=== PATIENT | female | born 2000 | race Two or more races ===

== ENCOUNTER 2019-09-01 00:26 | Emergency (ER) | payer SELFPAY ==
[2019-09-01 01:06] VITALS: BP 109/71; PULSE 66; TEMP 98.3; BMI 27.8
[2019-09-01] MEDS ORDERED: ACETAMINOPHEN WITH CODEINE 300MG/30MG TABLET PO ONE (01:47)
[2019-09-01] MEDS ORDERED: ACETAMINOPHEN WITH CODEINE 300MG/30MG TABLET ONE (02:01)
--- NOTE | 2019-09-01 02:17 | PDOC ---
History of Present Illness - General Chief Complaint: Back Pain Stated Complaint: PAIN/BACK Time Seen by Provider: 09/01/19 01:15 History Source: Patient Exam Limitations: No Limitations - History of Present Illness Initial Comments: 09/01/19 02:14 HISTORY OF PRESENT ILLNESS: 18-year-old otherwise healthy woman denies OCP usage presents emergency department for evaluation of dry nonproductive cough for the past 2 days. She denies fevers chills but reports increased pleuritic pain worsens with coughing. Additionally patient has a bitemporal headache which worsens with cough. Patient does not have coughing fits the headache resolves completely. Patient reports intermittently shortness of breath but denies at present. No recent travel or sick contacts. PAST MEDICAL HISTORY: Denies past medical history SURGICAL HISTORY: Denies ALLERGIES: No known drug allergies REVIEW OF SYSTEMS General/Constitutional: Denies fever or chills. Denies weakness, weight change. HEENT: Denies change in vision. Denies ear pain or discharge. Denies sore throat. Cardiovascular: Denies chest pain or shortness of breath. Respiratory: See HPI Gastrointestinal: Denies nausea, vomiting, diarrhea or constipation. Denies rectal bleeding. Genitourinary: Denies dysuria, frequency, or change in urination. Musculoskeletal: Denies joint or muscle swelling or pain. Denies neck or back pain. Skin and breasts: Denies rash or easy bruising. Neurologic: See HPI Psychiatric: Denies depression or anxiety. Endocrine: Denies increased thirst. Denies abnormal weight change. Hematologic/Lymphatic: Denies anemia, easy bleeding, or history of blood clots. Allergic/Immunologic: Denies hives or skin allergy. Denies latex allergy. PHYSICAL EXAM General Appearance: Well-appearing, appropriately dressed. No apparent distress , no intoxication. HEENT: EOMI, PERRLA, normal ENT inspection, normal voice, TMs normal, pharynx normal. No conjunctival pallor. No photophobia, scleral icterus. Cobblestoning present the posterior aspect of the oropharynx. Neck: Supple. Trachea midline. No tenderness, rigidity, carotid bruit, stridor , lymphadenopathy, or thyromegaly. Respiratory/Chest: Lungs CTAB. No shortness of breath, chest tenderness, respiratory distress, accessory muscle use. No crackles, rales, rhonchi, stridor , wheezing, dullness Cardiovascular: RRR. S1, S2. No JVD, murmur, bradycardia, tachycardia. Lymphatic: No adenopathy, tenderness. Integumentary: Appropriate color, dry, warm. 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 Fully oriented, alert. Appropriate mood/affect. Motor strength 5/5. No appreciable EOM palsy, facial droop or sensory deficit. 09/01/19 02:24 Past History - Past Medical History Allergies/Adverse Reactions: Allergies Allergy/AdvReac Type Severity Reaction Status Date / Time No Known Allergies Allergy Verified 09/01/19 00:54 Home Medications: Ambulatory Orders Benzonatate [Tessalon Pearls -] 200 mg PO TID PRN #42 cap 09/01/19 COPD: No - Surgical History Appendectomy: Yes - Psycho Social/Smoking Cessation Hx Smoking History: Current some day smoker Information on smoking cessation initiated: No Hx Alcohol Use: No Drug/Substance Use Hx: No *Physical Exam - Vital Signs Last Vital Signs Temp Pulse Resp BP Pulse Ox 98.3 F 66 16 109/71 100 09/01/19 00:55 09/01/19 00:55 09/01/19 00:55 09/01/19 00:55 09/01/19 00:55 ED Treatment Course - RADIOLOGY Radiology Studies Ordered: Category Date Time Status CHEST PA & LAT [RAD] Stat Radiology 09/01/19 01:46 Taken - Medications Given in the ED: ED Medications Discontinued Medications Generic Name Dose Route Start Last Admin Trade Name Freq PRN Reason Stop Dose Admin Acetaminophen/Codeine Phosphate 1 tab 09/01/19 01:47 09/01/19 02:05 Tylenol # 3 - PO 09/01/19 01:48 1 tab ONCE ONE Administration Medical Decision Making - Medical Decision Making 09/01/19 02:16 A/P: 18-year-old woman with cough for 2 days Patient most likely with an upper respiratory infection given postnasal drip and coughing. Patient is requesting chest x-ray to rule out pneumonia. Chest x-ray Tylenol 3 1 tablet orally now Reassess Discharge - Discharge Information Problems reviewed: Yes Clinical Impression/Diagnosis: Cough headache, URI, acute Condition: Stable Disposition: HOME - Admission No - Additional Discharge Information Prescriptions: Benzonatate [Tessalon Pearls -] 200 mg PO TID PRN #42 cap PRN Reason: Cough - Follow up/Referral Referrals: [facility] [place] [facility] [place] [Provider Group] - Patient Discharge Instructions Additional Instructions: Rest, drink lots of fluids: Teas, water, soups, Pedialyte Saltwater gargles Steamy showers/seem to face break up mucus Avoid contact with others until fevers and cough resolved Lots of handwashing and good hygiene Continue gvov-xna-yphynwd medications for symptomatic relief Tylenol or Motrin for fever and pain Followup with private physician in one to 2 days as needed Return to emergency department for worsened symptoms, fevers, dehydration El descsurinderorikki muchos lquidos: ts, agua, sopas, Pedialyte grgaras de agua salada Duchas Steamy / parecen enfrentar aflojar la mucosidad Evite el contacto con otras personas hasta que la fiebre y la tos resueltos Un montn de lavado de isis y la higiene Continuar kvva-cen-ylkoemr medicamentos para el alivio sintomtico Tylenol o Motrin para la fiebre y el dolor Followup con el mdico privado en [place] o 2 josue segn sea necesario Regresar a urgencias por sntomas empeoraron, fiebres, deshidratacin - Post Discharge Activity
== END 2019-09-01 03:25 | disposition home or self-care (01) ==
LOC: JER 00:26
DX: J06.9 Acute upper respiratory infection, unspecified (principal); Z72.0 Tobacco use
CPT/HCPCS: 71046-TC-FY; 99283-25

== ENCOUNTER 2020-02-17 20:33 | Emergency (ER) | payer OTHER ==
[2020-02-17 20:52] VITALS: BMI 28.3
[2020-02-17] MEDS ORDERED: PANTOPRAZOLE SODIUM 40 MG VIAL IVPUSH ONE (22:07)
[2020-02-17] MEDS ORDERED: MAG HYDROX/AL HYDROX/SIMETH 30 ML UNIT-DOSE CUP PO ONE (22:07)
[2020-02-17] MEDS ORDERED: PANTOPRAZOLE SODIUM 40 MG VIAL ONE (22:30)
[2020-02-17] MEDS ORDERED: MAG HYDROX/AL HYDROX/SIMETH 30 ML UNIT-DOSE CUP ONE (22:30)
[2020-02-17 22:34] LABS: BASO % 0.9 % (0-2.0); EOS % 0.8 % (0-4.5); HEMATOCRIT 39.8 % (32.4-45.2); HEMOGLOBIN 13.2 GM/dL (10.7-15.3); LYMPH % 28.9 % (8-40); MCH 30.2 pg (25.7-33.7); MCHC 33.1 g/dl (32.0-36.0); MEAN CELL VOLUME 91.2 fl (80-96); MEAN PLT VOLUME 8.8 fl (7.5-11.1); NEUT % 63.4 % (42.8-82.8); PLATELET COUNT 270 K/MM3 (134-434); RBC 4.36 M/mm3 (3.60-5.2); RDW 13.4 % (11.6-15.6); WHITE BLOOD COUNT 9.7 K/mm3 (4.0-10.0)
--- NOTE | 2020-02-17 22:36 | PDOC ---
History of Present Illness - General Chief Complaint: Pain, Acute Stated Complaint: ABD PAIN Time Seen by Provider: 02/17/20 21:23 History Source: Patient Exam Limitations: Language Barrier - History of Present Illness Initial Comments: 02/17/20 22:34 19-year-old female no significant past medical history complaining of 3 days of abdominal pain described as diffuse crampy. Patient states that she finished her menstrual period 3 days ago and has been the pain began. Patient states she had a similar event 1 month ago where after her period she had diffuse abdominal pain but resolved on its own. Patient did not take any medicine at this time patient has not had any episodes of nausea vomiting diarrhea. Pt otherwise denies: fevers, chills, syncope, lightheadedness, dizziness, headaches, neck pain, chest pain, shortness of breath, palpitations, back pain nausea, vomiting, diarrhea, constipation, melena, hematochezia, dysuria, hematuria, increased urinary frequency/urgency, vaginal bleeding, vaginal discharge. Past History - Medical History Allergies/Adverse Reactions: Allergies Allergy/AdvReac Type Severity Reaction Status Date / Time No Known Allergies Allergy Verified 09/01/19 00:54 Home Medications: Ambulatory Orders Benzonatate [Tessalon Pearls -] 200 mg PO TID PRN #42 cap 09/01/19 COPD: No - Surgical History Appendectomy: Yes - Reproductive History Is Patient Now?: No - Psycho-Social/Smoking History Smoking History: Never smoked - Substance Abuse Hx (Audit-C & DAST Scrn) How often the patient has a drink containing alcohol: Never Score: In Men: 4 or > Positive; In Women: 3 or > Positive: 0 Screen Result (Pos requires Nsg. Audit-10AR): Negative In the last yr the pt used illegal drug/Rx for NonMed reason: No Score: Yes response is considered Positive: 0 Screen Result (Positive result requires Nsg. DAST-10): Negative *Physical Exam - Vital Signs Last Vital Signs Temp Pulse Resp BP Pulse Ox 97.6 F 72 19 110/60 98 02/17/20 20:45 02/17/20 20:45 02/17/20 20:45 02/17/20 20:45 02/17/20 20:45 - Physical Exam 02/17/20 22:35 Gen: AAOx 3, no acute distress, comfortable, no signs of respiratory distress HENT: atraumatic, normocephalic with no laceration or contusion. Nasal mucosa without erythema. Oropharynx without erythema or exudates. Mucous membranes moist. EYES: PERRL, EOM intact, conjunctiva pink NECK: supple; trachea midline; no JVD, no lymphadenopathy, or thyromegaly CV: RRR no murmurs, gallops, or rubs. CHEST: CTA b/l no wheezing, rales or rhonchi ABD: +BS/ND. TTP thoutghout abdomen; soft, no rebound, no guarding EXTREMITY: no cyanosis or erythema. 2+ dorsalis pedis, posterior tibial, and radial pulse. No pedal edema; no calf swelling or tenderness SKIN: no rash, warm and dry, no diaphoresis HEME: no purpura or ecchymosis NEURO: normal speech, CN II-XII intact, sensation intact, normal gait, no cerebellar deficits MS: 5/5 strength in all extremities, FROM intact in all extremities. ED Treatment Course - LABORATORY CBC & Chemistry Diagram: 02/17/20 21:50 02/17/20 21:50 Medical Decision Making - Medical Decision Making 02/17/20 22:35 19-year-old female diffuse abdominal pain Vital signs stable Will obtain labs give Protonix Maalox Will reassess based on results and need for imaging Pt reports minimal improvement with GI meds Labs grossly WNL Beta hydroxybuterate order in error HCG Negative UA shows UTI will treat pt Pending CT abdomen and pelvis Due to shift change patient signed out to the resident pending CAT scan results Discharge - Discharge Information Problems reviewed: Yes Clinical Impression/Diagnosis: Abdominal pain Qualifiers: Abdominal location: generalized Qualified Code(s): R10.84 - Generalized abdominal pain - Follow up/Referral - Patient Discharge Instructions - Post Discharge Activity
[2020-02-17 22:57] LABS: ALBUMIN 4.1 g/dl (3.4-5.0); ALK PHOS 75 U/L (45-117); ANION GAP 7 MMOL/L (8-16); BLOOD UREA NITROGEN 12.5 mg/dL (7-18); CALCIUM 9.8 mg/dL (8.5-10.1); CHLORIDE 101 mmol/L (98-107); CO2 27 mmol/L (21-32); CREATININE 0.7 mg/dL (0.55-1.3); GLUCOSE,RANDOM 73 mg/dL (74-106); LIPASE 118 U/L (73-393); POTASSIUM 4.4 mmol/L (3.5-5.1); SGOT/AST 28 U/L (15-37); SGPT/ALT 29 U/L (13-61); SODIUM 136 mmol/L (136-145); TOT PROT 8.2 g/dl (6.4-8.2)
[2020-02-17 23:01] LABS: BILIRUBIN,TOTAL 0.4 mg/dL (0.2-1)
[2020-02-17 23:08] LABS: EPI CELLS 23 /uL (0-25.1); HYALINE CASTS 4 /uL (0-3.1); URINE APPEARANCE CLEAR; URINE BACTERIA 1269 /uL (0-1359); URINE BILIRUBIN NEGATIVE (NEGATIVE); URINE COLOR YELLOW; URINE GLUCOSE (UA) NEGATIVE (NEGATIVE); URINE KETONE 1+ (NEGATIVE); URINE LEUK ESTERASE 2+ (NEGATIVE); URINE NITRITE NEGATIVE (NEGATIVE); URINE PROTEIN NEGATIVE (NEGATIVE); URINE RBC 16 /uL (0-23.9); URINE UROBILINOGEN 0.2 mg/dL (0.2-1.0); URINE WBC 319 /uL (0-25.8)
[2020-02-18] MEDS ORDERED: KETOROLAC TROMETHAMINE 30 MG/1 ML VIAL IVPUSH ONE (01:40)
--- NOTE | 2020-02-18 01:49 | PDOC ---
*Physical Exam - Vital Signs Last Vital Signs Temp Pulse Resp BP Pulse Ox 97.6 F 72 19 110/60 98 02/17/20 20:45 02/17/20 20:45 02/17/20 20:45 02/17/20 20:45 02/17/20 20:45 ED Treatment Course - LABORATORY CBC & Chemistry Diagram: 02/17/20 21:50 02/17/20 21:50 - ADDITIONAL ORDERS Additional order review: Laboratory Results 02/17/20 02/17/20 02/17/20 23:00 21:50 21:50 PTT (Actin FS) 37.3 H Sodium 136 Potassium 4.4 Chloride 101 Carbon Dioxide 27 Anion Gap 7 L BUN 12.5 Creatinine 0.7 Est GFR (CKD-EPI)AfAm 143.54 Est GFR (CKD-EPI)NonAf 123.85 Random Glucose 73 L Calcium 9.8 Total Bilirubin 0.4 AST 28 ALT 29 Alkaline Phosphatase 75 Total Protein 8.2 Albumin 4.1 Lipase 118 Beta-Hydroxybutyrate 3.9 H Beta HCG, Quant < 1.0 Urine Color Yellow Urine Appearance Clear Urine pH 6.0 Ur Specific [place] 1.024 Urine Protein Negative Urine Glucose (UA) Negative Urine Ketones 1+ H Urine Blood Trace Urine Nitrite Negative Urine Bilirubin Negative Urine Urobilinogen 0.2 Ur Leukocyte Esterase 2+ H Urine WBC (Auto) 319 Urine RBC (Auto) 16 Urine Casts (Auto) 4 U Epithel Cells (Auto) 23 Urine Bacteria (Auto) 1269 02/17/20 21:50 RBC 4.36 MCV 91.2 MCHC 33.1 RDW 13.4 MPV 8.8 Neutrophils % 63.4 Lymphocytes % 28.9 Monocytes % 6.0 Eosinophils % 0.8 Basophils % 0.9 - Medications Given in the ED: ED Medications Discontinued Medications Generic Name Dose Route Start Last Admin Trade Name Freq PRN Reason Stop Dose Admin Al Hydroxide/Mg Hydroxide 30 ml 02/17/20 22:07 02/17/20 22:15 Mylanta Oral Suspension - PO 02/17/20 22:08 30 ml ONCE ONE Administration Pantoprazole Sodium 40 mg 02/17/20 22:07 02/17/20 22:15 Protonix Iv IVPUSH 02/17/20 22:08 40 mg ONCE ONE Administration Medical Decision Making - Medical Decision Making 02/18/20 01:47 Pt received on s/o from [facility]ARRE[facility]. 19F with no reported PMH presenting today with diffuse abdominal pain that has been worsening. LNMP 3 days ago. No vaginal bleeding/discharge. ED course: pt received protonix maalox, toradol with minimal improvement. CT abd/pelv with IV contrast ordered. UA shows signs of UTI. 02/18/20 04:45 CT abd/pelv shows mild central canal narrowing at L4-5 due to a disc herniation. No other evidence of acute pathology. 02/18/20 05:13 Pelvic exam shows normal external exam with no active bleeding or obvious lesions. White, physiologic discharge in the vaginal vault. Os closed. Mild suprapubic tenderness but no cervical motion tenderness and no adnexal tenderness bilaterally. GC swab sent. Pt reassessed. Plan to d/c home with keflex for UTI and PCP f/u. All questions answered. Return precautions given. Pt verbalized understanding and agreement with plan. Discharge - Discharge Information Problems reviewed: Yes Clinical Impression/Diagnosis: Abdominal pain Qualifiers: Abdominal location: generalized Qualified Code(s): R10.84 - Generalized abdom inal pain Condition: Stable Disposition: HOME - Admission No - Additional Discharge Information Prescriptions: Cephalexin [Keflex] 500 mg PO BID 5 Days #10 capsule - Follow up/Referral Referrals: [facility] [place] [facility] [place] [Provider Group] - Patient Discharge Instructions Patient Printed Discharge Instructions: DI for Abdominal Pain-Adult, DI for Dysuria -- Adult Additional Instructions: Please take Keflex 500 mg twice a day for 5 days. Please make a follow up appointment with your primary care doctor within the next week. If you experience any new, worsening, or concerning symptoms, including worsening abdominal pain, blood in the vomit or stool, fever, chills, back pain, or any other concerns, please return to the emergency department. Babbie Keflex 500 mg dos veces al da jackie 5 josue. Jordyn damian ash de seguimiento con mo mdico de atencin primaria dentro de la prxima semana. Si experimenta algn sntoma nuevo, que empeora o preocupa, que incluye empe oramiento del dolor abdominal, flako en el vmito o las heces, fiebre, escalofros, dolor de espalda o cualquier otra inquietud, regrese al departamento de emergencias. - Post Discharge Activity
[2020-02-18] MEDS ORDERED: KETOROLAC TROMETHAMINE 30 MG/1 ML VIAL ONE (02:17)
--- NOTE | 2020-02-18 04:16 | PDOC ---
*Physical Exam - Vital Signs Last Vital Signs Temp Pulse Resp BP Pulse Ox 97.6 F 72 19 110/60 98 02/17/20 20:45 02/17/20 20:45 02/17/20 20:45 02/17/20 20:45 02/17/20 20:45 ED Treatment Course - LABORATORY CBC & Chemistry Diagram: 02/17/20 21:50 02/17/20 21:50 - ADDITIONAL ORDERS Additional order review: Laboratory Results 02/17/20 02/17/20 02/17/20 23:00 22:06 21:50 PTT (Actin FS) 37.3 H Sodium 136 Potassium 4.4 Chloride 101 Carbon Dioxide 27 Anion Gap 7 L BUN 12.5 Creatinine 0.7 Est GFR (CKD-EPI)AfAm 143.54 Est GFR (CKD-EPI)NonAf 123.85 Random Glucose 73 L Calcium 9.8 Total Bilirubin 0.4 AST 28 ALT 29 Alkaline Phosphatase 75 Total Protein 8.2 Albumin 4.1 Lipase 118 Beta-Hydroxybutyrate 3.9 H Beta HCG, Quant < 1.0 Urine Color Urine Appearance Urine pH Ur Specific [place] Urine Protein Urine Glucose (UA) Urine Ketones Urine Blood Urine Nitrite Urine Bilirubin Urine Urobilinogen Ur Leukocyte Esterase Urine WBC (Auto) Urine RBC (Auto) Urine Casts (Auto) U Epithel Cells (Auto) Urine Bacteria (Auto) Blood Type O POSITIVE Antibody Screen Negative 02/17/20 21:50 PTT (Actin FS) Sodium Potassium Chloride Carbon Dioxide Anion Gap BUN Creatinine Est GFR (CKD-EPI)AfAm Est GFR (CKD-EPI)NonAf Random Glucose Calcium Total Bilirubin AST ALT Alkaline Phosphatase Total Protein Albumin Lipase Beta-Hydroxybutyrate Beta HCG, Quant Urine Color Yellow Urine Appearance Clear Urine pH 6.0 Ur Specific [place] 1.024 Urine Protein Negative Urine Glucose (UA) Negative Urine Ketones 1+ H Urine Blood Trace Urine Nitrite Negative Urine Bilirubin Negative Urine Urobilinogen 0.2 Ur Leukocyte Esterase 2+ H Urine WBC (Auto) 319 Urine RBC (Auto) 16 Urine Casts (Auto) 4 U Epithel Cells (Auto) 23 Urine Bacteria (Auto) 1269 Blood Type Antibody Screen 02/17/20 21:50 RBC 4.36 MCV 91.2 MCHC 33.1 RDW 13.4 MPV 8.8 Neutrophils % 63.4 Lymphocytes % 28.9 Monocytes % 6.0 Eosinophils % 0.8 Basophils % 0.9 - Medications Given in the ED: ED Medications Discontinued Medications Generic Name Dose Route Start Last Admin Trade Name Sharon PRN Reason Stop Dose Admin Al Hydroxide/Mg Hydroxide 30 ml 02/17/20 22:07 02/17/20 22:15 Mylanta Oral Suspension - PO 02/17/20 22:08 30 ml ONCE ONE Administration Ketorolac Tromethamine 30 mg 02/18/20 01:40 02/18/20 02:26 Toradol Injection - IVPUSH 02/18/20 01:41 30 mg ONCE ONE Administration Pantoprazole Sodium 40 mg 02/17/20 22:07 02/17/20 22:15 Protonix Iv IVPUSH 02/17/20 22:08 40 mg ONCE ONE Administration Medical Decision Making - Medical Decision Making 02/18/20 04:16 Patient seen by the advanced practice provider under my supervision. Ancillary testing reviewed as necessary. I agree with plan as outlined by the advanced practice provider. Case signed out to ED resident pending CT scan results which shows no significant acute abnormality Will DC on antibiotics for urinary tract infection with outpatient follow-up Discharge - Discharge Information Problems reviewed: Yes Clinical Impression/Diagnosis: Abdominal pain Qualifiers: Abdominal location: generalized Qualified Code(s): R10.84 - Generalized abdominal pain - Follow up/Referral - Patient Discharge Instructions - Post Discharge Activity
[2020-02-18 06:37] VITALS: BP 108/69; PULSE 55; TEMP 98
== END 2020-02-18 06:00 | disposition home or self-care (01) ==
LOC: JER 20:33
PROC: 3E033GC Introduction of Other Therapeutic Substance into Peripheral Vein, Percutaneous Approach (ICD-10-PCS; principal; 2020-02-17)
DX: R10.84 Generalized abdominal pain (principal)
CPT/HCPCS: 36415; 74177-TC; 80053; 81003; 82010; 83690; 84702; 85025; 85730; 86850; 86900; 86901; 87491; 87591; 99285-25; Q9967

== ENCOUNTER 2020-03-01 14:23 | Emergency (ER) | payer OTHER ==
[2020-03-01] MEDS ORDERED: AZITHROMYCIN 250 MG TABLET PO ONE (14:35)
--- NOTE | 2020-03-01 14:35 | PDOC ---
Rapid Medical Evaluation Time Seen by Provider: 03/01/20 14:33 Medical Evaluation: Allergies Allergy/AdvReac Type Severity Reaction Status Date / Time No Known Allergies Allergy Verified 03/01/20 14:25 03/01/20 14:33 I have performed a brief in-person evaluation of this patient. CC: returned to ER for treatment of GC PE: deferred Orders: ceftriaxone and azithromycin Patient to proceed to ED for further evaluation. Discharge Disposition - Diagnosis N. gonorrhoeae, C. trachomatis infection - Referrals - Patient Instructions - Post Discharge Activity
[2020-03-01 14:36] VITALS: BP 99/68; PULSE 76; TEMP 98.4; BMI 28.7
[2020-03-01] MEDS ORDERED: AZITHROMYCIN 250 MG TABLET ONE (15:06)
--- NOTE | 2020-03-01 15:07 | PDOC ---
History of Present Illness - General Chief Complaint: Revisit, Lab Variance Stated Complaint: SICK Time Seen by Provider: 03/01/20 14:33 History Source: Patient Exam Limitations: No Limitations - History of Present Illness Initial Comments: 03/01/20 15:02 19-year-old female denies past medical history, LMP February 08, 2020, denies history of presents for gonorrhea and chlamydia treatment. Patient was seen at this ED February 17, 2020 for abdominal pain, was discharged on course of cephalexin for UTI which she completed. Patient reports vaginal discharge, denies abdominal pain, fever, chills, urinary complaints or any other symptoms. Patient reports one male sexual partner in the past year. Patient is not on control. States that she received a phone call 2 to 3 days ago advised her to come in for treatment of gonorrhea and chlamydia. ROS: as above PE: GENERAL: well-appearing, NAD HEAD: NCAT EYES: Pupils equal, round and reactive to light, sclera anicteric, conjunctiva clear ENT: Normal bilateral ear canal, normal TMs, pharynx: no erythema, no exudate, uvula midline NECK: supple CHEST: nontender RESP: clear, no w/r/r CARDIO: rrr, no m/g/r ABD: +BS, soft, nontender, non distended BACK: no midline spinal ttp, no CVAT EXTREMITIES: Normal range of motion, no edema NEUROLOGICAL: Normal speech, normal gait SKIN: Warm, Dry Is this a multiple visit Asthma Patient?: No Past History - Medical History Allergies/Adverse Reactions: Allergies Allergy/AdvReac Type Severity Reaction Status Date / Time No Known Allergies Allergy Verified 03/01/20 14:36 Home Medications: Ambulatory Orders Benzonatate [Tessalon Pearls -] 200 mg PO TID PRN #42 cap 09/01/19 Cephalexin [Keflex] 500 mg PO BID 5 Days #10 capsule 02/18/20 COPD: No - Surgical History Appendectomy: Yes - Reproductive History Is Patient Now?: No - Psycho-Social/Smoking History Smoking History: Never smoked *Physical Exam - Vital Signs Last Vital Signs Temp Pulse Resp BP Pulse Ox 98.4 F 76 18 99/68 100 03/01/20 14:29 03/01/20 14:29 03/01/20 14:29 03/01/20 14:29 03/01/20 14:29 Medical Decision Making - Medical Decision Making 03/01/20 15:05 19-year-old female denies past medical history, LMP February 08, 2020, denies history of presents for gonorrhea and chlamydia treatment. Patient was seen at this ED February 17, 2020 for abdominal pain, was discharged on course of cephalexin for UTI which she completed. Patient reports vaginal discharge, denies abdominal pain, fever, chills, urinary complaints or any other symptoms. Patient reports one male sexual partner in the past year. Patient is not on control. States that she received a phone call 2 to 3 days ago advised her to come in for treatment of gonorrhea and chlamydia. Ceftriaxone IM and azithromycin p.o. ordered triage Patient understands she is to inform her sexual partner to have testing and treatment for gonorrhea and chlamydia Safe sex practices advised Discharge - Discharge Information Problems reviewed: Yes Clinical Impression/Diagnosis: N. gonorrhoeae, C. trachomatis infection Condition: Stable Disposition: HOME - Admission No - Follow up/Referral Referrals: [facility] [place] [facility] [place] Group] - Patient Discharge Instructions Additional Instructions: Have your sexual partner tested and treated for gonorrhea and chlamydia You are advised to practice safe sex Follow-up with a primary care physician within 1 week Return to ED if you develop abdominal pain, fever, chills or any concerning symptom - Post Discharge Activity
== END 2020-03-01 15:16 | disposition home or self-care (01) ==
LOC: JERFT 14:23
DX: A54.9 Gonococcal infection, unspecified (principal); A74.9 Chlamydial infection, unspecified
CPT/HCPCS: 99284-25

== ENCOUNTER 2021-01-13 10:48 | Emergency (ER) | payer OTHER ==
[2021-01-13 11:15] VITALS: TEMP 98; BMI 25.7
[2021-01-13] MEDS ORDERED: ACETAMINOPHEN 1000 MG/100 ML VIAL (NON FORMULARY) IVPB ONE (11:39)
[2021-01-13] MEDS ORDERED: FAMOTIDINE 20 MG/50 ML IVPB 20 MG/50 ML MG IVPB ONE ×2 (11:40→11:43)
[2021-01-13] MEDS ORDERED: ACETAMINOPHEN INJECTION 100 ML IVPB ONE (11:43)
[2021-01-13] MEDS ORDERED: ONDANSETRON 4 MG/2 ML VIAL IVPB ONE (11:52)
[2021-01-13] MEDS ORDERED: SODIUM CHLORIDE 1,000 ML IV ONE (11:52)
[2021-01-13] MEDS ORDERED: ONDANSETRON 4 MG/2 ML VIAL IVPUSH ONE (11:58)
[2021-01-13] MEDS ORDERED: ONDANSETRON 4 MG/2 ML VIAL ONE (12:19)
[2021-01-13 12:45] LABS: ALBUMIN 3.4 g/dl (3.4-5.0); BLOOD UREA NITROGEN 5.9 mg/dL (7-18)
[2021-01-13 12:49] LABS: CREATININE 0.7 mg/dL (0.55-1.3)
[2021-01-13 12:50] LABS: BILIRUBIN,TOTAL 0.8 mg/dL (0.2-1); TOT PROT 7.8 g/dl (6.4-8.2)
[2021-01-13 13:19] LABS: BASO % 0.7 % (0-2.0); EOS % 0.3 % (0-4.5); HEMATOCRIT 35.1 % (32.4-45.2); HEMOGLOBIN 11.6 GM/dL (10.7-15.3); LYMPH % 19.2 % (8-40); MCH 29.2 pg (25.7-33.7); MEAN CELL VOLUME 88.5 fl (80-96); MEAN PLT VOLUME 8.4 fl (7.5-11.1); MONO % 10.7 % (3.8-10.2); NEUT % 69.1 % (42.8-82.8); PLATELET COUNT 238 10^3/uL (134-434); RBC 3.97 M/mm3 (3.60-5.2); RDW 12.7 % (11.6-15.6); WHITE BLOOD COUNT 8.5 K/mm3 (4.0-10.0)
[2021-01-13 14:08] LABS: EPI CELLS 13 /uL (0-25.1); HYALINE CASTS 2 /uL (0-3.1); PH,URINE 6.5 (5.0-8.0); URINE APPEARANCE CLOUDY; URINE BACTERIA >9,000 /uL (0-1359); URINE BILIRUBIN NEGATIVE (NEGATIVE); URINE COLOR YELLOW; URINE GLUCOSE (UA) NEGATIVE (NEGATIVE); URINE KETONE NEGATIVE (NEGATIVE); URINE LEUK ESTERASE 3+ (NEGATIVE); URINE NITRITE POSITIVE (NEGATIVE); URINE PROTEIN 1+ (NEGATIVE); URINE RBC 46 /uL (0-23.9); URINE WBC 931 /uL (0-25.8)
[2021-01-13 14:09] LABS: HCG,QUALITATIVE URINE Negative
[2021-01-13 14:23] VITALS: BP 90/57; PULSE 64
== END 2021-01-13 14:35 | disposition home or self-care (01) ==
LOC: JER 10:48
PROC: 3E0337Z Introduction of Electrolytic and Water Balance Substance into Peripheral Vein, Percutaneous Approach (ICD-10-PCS; principal; 2021-01-13)
PROC: 3E033GC Introduction of Other Therapeutic Substance into Peripheral Vein, Percutaneous Approach (ICD-10-PCS; principal; 2021-01-13)
DX: N12 Tubulo-interstitial nephritis, not specified as acute or chronic (principal)
CPT/HCPCS: 80053; 81003; 83690; 84703; 85025; 87086; 87186; 93005; 93010; 99285-25; C9803; J0131; U0003; U0005

== ENCOUNTER 2021-06-19 14:08 | Emergency (ER) | payer OTHER ==
[2021-06-19 14:46] VITALS: BP 112/70; PULSE 91; TEMP 97.2; BMI 29.7
[2021-06-19 19:37] LABS: EPI CELLS >36 /uL (0-25.1); HYALINE CASTS 5 /uL (0-3.1); PH,URINE 5.5 (5.0-8.0); URINE APPEARANCE CLOUDY; URINE BACTERIA 815 /uL (0-1359); URINE BILIRUBIN NEGATIVE (NEGATIVE); URINE COLOR ORANGE; URINE GLUCOSE (UA) NEGATIVE (NEGATIVE); URINE KETONE TRACE (NEGATIVE); URINE LEUK ESTERASE 1+ (NEGATIVE); URINE NITRITE NEGATIVE (NEGATIVE); URINE PROTEIN 2+ (NEGATIVE); URINE RBC 1052 /uL (0-23.9); URINE WBC 149 /uL (0-25.8)
== END 2021-06-19 20:31 | disposition home or self-care (01) ==
LOC: JERFT 14:08
DX: N93.9 Abnormal uterine and vaginal bleeding, unspecified (principal); R10.2 Pelvic and perineal pain; N30.01 Acute cystitis with hematuria
CPT/HCPCS: 76830-TC; 81003; 84703; 99284-25

== ENCOUNTER 2021-11-13 13:37 | Emergency (ER) | payer OTHER ==
[2021-11-13 13:52] VITALS: BP 108/70; PULSE 84; TEMP 98; BMI 32.8
[2021-11-13] MEDS ORDERED: KETOROLAC TROMETHAMINE 30 MG/1 ML VIAL IM ONE (14:20)
== END 2021-11-13 14:59 | disposition home or self-care (01) ==
LOC: JERFT 13:37
PROC: 3E0233Z Introduction of Anti-inflammatory into Muscle, Percutaneous Approach (ICD-10-PCS; principal; 2021-11-13)
DX: R07.0 Pain in throat (principal)
CPT/HCPCS: 87651; 99284-25